=== PATIENT | male | born 1970 | race Caucasian/White ===

== ENCOUNTER → 2017-01-27 | Outpatient (CLI) | payer BC ==
--- NOTE | 2017-01-27 10:52 | DIAGNOSTIC IMAGING REPORT ---
TESTICULAR ULTRASOUND HISTORY: Epididymal mass. Right-sided scrotal lump. COMPARISON: None. FINDINGS: Right testis: 4.5 x 2.9 x 2.0 cm. There are no intratesticular masses. Normal color flow. Small hydrocele. The epididymis demonstrates a 1.2 x 1.0 cm cyst at the head. This corresponds to the patient's palpable abnormality. Left testis: 4.5 x 2.8 x 1.7 cm. There are no intratesticular masses. Normal color flow. Small hydrocele. The epididymis demonstrates a 1.7 x 1.6 x 0.8 cm cyst within the epididymal head. IMPRESSION: 1. Bilateral epididymal head cysts. The right epididymal head cyst corresponds to the patient's palpable abnormality. 2. Small bilateral hydroceles. 3. No intratesticular masses. Electronically signed by: Tray Rebolledo M.D. 01/27/2017 10:50 AM Dictated Date/Time: 01/27/2017 10:48 AM
== END | disposition home or self-care (01) ==
LOC: C.ULTRBC 10:09
PROVIDERS: ATTEND Urology
DX: N50.9 Disorder of male genital organs, unspecified (principal)